=== PATIENT | male | born 1965 | race Two or more races ===

== ENCOUNTER 2021-11-29 07:18 | Outpatient (CLI) | payer OTHER | END 2021-11-29 23:59 | disposition home or self-care (01) | LOC: LAB 07:18 | PROVIDERS: ATTEND Specialist | DX: Z01.812 Encounter for preprocedural laboratory examination (principal); Z20.822 Contact with and (suspected) exposure to COVID-19 | CPT/HCPCS: C9803; U0003 ==

== ENCOUNTER 2021-12-06 06:58 | Day surgery (SDC) | payer OTHER ==
--- NOTE | 2021-12-06 07:30 | NUR ---
ms rn received an out patient surgery pt, awake,alert,oriented x4,not in any form of distress, respirations even and unlabored,denies pain at this time. came in for shoulder surgery by dr. aguilar,will prepare pt for sx.
[2021-12-06 08:00] VITALS: BP 113/73
[2021-12-06] MEDS ORDERED: EPINEPHRINE (1:1000) 1 MG/ML AMPUL ONE (08:20)
[2021-12-06] MEDS ORDERED: BUPIVACAINE 0.5 % PF 150 MG/30 ML VIAL ONE (08:20)
--- NOTE | 2021-12-06 08:30 | NUR ---
ms rn patient is ready for surgery, iv inserted at left ac g20 w/ good venous output.
--- NOTE | 2021-12-06 10:00 | NUR ---
ms rn patient went down for surgery of right shoulder.all needs attended.
[2021-12-06] MEDS ORDERED: HYDROMORPHONE INJ 2 MG/ML DISP.SYRIN ONE (11:24)
[2021-12-06] MEDS ORDERED: ROCURONIUM BROMIDE 50 MG/5 ML ONE (11:24)
[2021-12-06] MEDS ORDERED: MIDAZOLAM HCL 2 MG/2ML VIAL ONE (11:24)
[2021-12-06] MEDS ORDERED: methylPREDNISolone ACETATE 80 MG/ML VIAL ONE (12:06)
--- NOTE | 2021-12-06 14:20 | NUR ---
ms rn patient came back from surgery,awake,alert,oriented x4,dry dressing to right shoulder noted, no evidence of bleeding, shoulder sling on,denies pain at this time.
[2021-12-06] MEDS ORDERED: HYDROCODONE/APAP 5/325MG TABLET PO PRN ×2 (14:30)
--- NOTE | 2021-12-06 14:45 | NUR ---
ms [employer] instructions given, patient went home accompanied by family member,called mirna from or for patient's paper for dr. aguilar to sign, according to her, , brought the paper to sing in his office, patient notified.
== END 2021-12-06 19:00 | disposition home or self-care (01) ==
LOC: DS 06:58 → UNDOADMIN 07:00 → MED 07:00 → UNDODISIN 15:16 → DS 19:00
PROVIDERS: ATTEND Specialist
DX: M75.41 Impingement syndrome of right shoulder (principal)
CPT/HCPCS: 29823; 29826; A4217; A4565; J0171; J0690; J1040; J1100; J1170; J1885; J2250; J2405; J2704; J3490 ×3; J7030; G0378